=== PATIENT | male | born 1965 | race African-American/Black ===

== ENCOUNTER 2019-07-07 15:47 | Emergency (ER) | payer OTHER ==
--- NOTE | 2019-07-07 16:26 | ED ---
Substance Abuse/Use - HPI Summary HPI Summary: This patient is a 53 year old M presenting to [facility] accompanied by correctional officers with a chief complaint of drug overdose since earlier today. Pt states he went to pick something up from the ground when he thinks he hit his head on the concrete or the seat. He became dizzy and woke up in the hospital. Per correctional officers, pt was smoking K2. He was found down at residential and was revived with narcan. The correctional officers report that the pt deposited suboxone up his rectum. The patient rates the pain 6/10 in severity. Symptoms aggravated by nothing. Symptoms alleviated by nothing. Pt denies any fever, chills, erythema of eyes, sore throat, CP, SOB, cough, abdominal pain, N/V, dysuria, hematuria, myalgia, edema, rash. - History Of Current Complaint Stated Complaint: OVERDOSE PER EMS Time Seen by Provider: 07/07/19 15:48 Hx Obtained From: Patient, Other: - correctional officers Onset/Duration of Drug/ETOH Abuse: Hours - earlier today Ingestion History: Type/Name Of Drug - K2 Severity Initially: Moderate Severity Currently: Moderate Aggravating Factor(s): Nothing Alleviating Factor(s): Nothing Associated Signs And Symptoms: Other: - positive - dizziness negative - fever, chills, erythema of eyes, sore throat, CP, SOB, cough, abdominal pain, N/V, dysuria, hematuria, myalgia, edema, rash. - Allergies/Home Medications Allergies/Adverse Reactions: Allergies Allergy/AdvReac Type Severity Reaction Status Date / Time No Known Allergies Allergy Verified 07/07/19 16:05 Home Medications: Home Medications LoraTADine TAB(NF) [Claritin 10 MG TAB(NF)] 10 mg PO DAILY 07/07/19 [History Confirmed 07/07/19] PMH/Surg Hx/FS Hx/Imm Hx Previously Healthy: No Sensory History: Denies: Hx Cataracts, Hx Legally Blind EENT History: Denies: Hx Deafness, Hx Auditory Problems - Surgical History Surgical History: None Infectious Disease History: No Infectious Disease History: Denies: Traveled Outside the [place] in Last 30 Days - Family History Known Family History: Positive: None - Social History Alcohol Use: None Hx Substance Use: Yes Review of Systems Constitutional: Other - positive - K2 drug overdose Negative: Fever, Chills Negative: Erythema Negative: Sore Throat Negative: Chest Pain Negative: Shortness Of Breath, Cough Negative: Abdominal Pain, Vomiting, Nausea Negative: dysuria, hematuria Negative: Myalgia, Edema Negative: Rash Neurological: Other - positive - dizziness All Other Systems Reviewed And Are Negative: Yes Physical Exam - Summary Physical Exam Summary: Constitutional: Well-developed, Well-nourished, Alert. (-) Distressed Skin: Warm, Dry. 5mm laceration on left lateral eyebrow, 3cm scalpal hematoma on right temporal and parietal lobes HENT: Normocephalic; Atraumatic Eyes: Conjunctiva normal Neck: Musculoskeletal ROM normal neck. (-) JVD, (-) Stridor, (-) Tracheal deviation Cardio: Rhythm regular, rate normal, Heart sounds normal; Intact distal pulses; The pedal pulses are 2+ and symmetric. Radial pulses are 2+ and symmetric. (-) Murmur Pulmonary/Chest wall: Effort normal. (-) Respiratory distress, (-) Wheezes, (-) Rales Abd: Soft, (-) tenderness, (-) Distension, (-) Guarding, (-) Rebound Musculoskeletal: (-) Edema. Tenderness in C5-C6 Lymph: (-) Cervical adenopathy Neuro: Alert, Oriented x3 Psych: Mood and affect Normal Triage Information Reviewed: Yes Vital Signs On Initial Exam: Initial Vitals Temp Pulse Resp BP Pulse Ox 98.0 F 80 16 145/92 97 07/07/19 15:53 07/07/19 15:53 07/07/19 15:53 07/07/19 15:53 07/07/19 15:53 Vital Signs Reviewed: Yes Procedures - Laceration/Wound Repair 2 Location: Other - scalp Description: Linear - 3 mm Suture Type: Other - 6-O Diagnostics - Vital Signs Vital Signs Temp Pulse Resp BP Pulse Ox 07/07/19 15:53 98.0 F 80 16 145/92 97 - Laboratory Result Diagrams: 07/07/19 16:22 07/07/19 16:22 Lab Statement: Any lab studies that have been ordered have been reviewed, and results considered in the medical decision making process. - CT Brain CT Interpretation Completed By: Radiologist Summary of CT Findings: IMPRESSION: No definite intracranial mass or hemorrhage is noted. These findings were reviewed by Dr. Young. 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 No fracture is identified. These findings were reviewed by Dr. Young. - EKG 1655 Cardiac Rate: NL - 80 EKG Rhythm: Sinus Rhythm Summary of EKG Findings: EKG at 1655 shows 80 BPM, sinus rhythm, no STEMI Re-Evaluation - Re-Evaluation First Eval Re-Evaluation Time: 20:05 Comment: Pt states he smoked a "strange" cigarette that he shared with his friends. One friend who smoked it went to the hospital in critical condition. Cigarette is believed to be spice or K2 Course/Dx - Course Course Of Treatment: This patient is a 53 year old M presenting to [facility] accompanied by correctional officers with a chief complaint of drug overdose since earlier today. Pt states he went to pick something up from the ground when he thinks he hit his head on the concrete or the seat. He became dizzy and woke up in the hospital. Per correctional officers, pt was smoking K2. He was found down at residential and was revived with narcan. The correctional officers report that the pt deposited suboxone up his rectum. The patient rates the pain 6/10 in severity. Symptoms aggravated by nothing. Symptoms alleviated by nothing. Pt denies any fever, chills, erythema of eyes, sore throat, CP, SOB, cough, abdominal pain, N/V, dysuria, hematuria, myalgia, edema, rash. Physical exam shows 5mm laceration on left lateral eyebrow, 3cm scalpal hematoma on right temporal and parietal lobes, tenderness in C5-C6. Lab results show MPV 7.2, glucose 111. Brain CT IMPRESSION: No definite intracranial mass or hemorrhage is noted. Cervical Spine CT IMPRESSION: Degenerative disc disease at C4-C5, C5-C6 and C6-C7 with ventral osteophyte formation. No fracture is identified. EKG at 1655 shows 80 BPM, sinus rhythm, no STEMI. Laceration Procedure Note: 2 6-O sutures to 3mm laceration on scalp. I was unable to obtain substantial medical evidence from [facility]. Dx is LOC, scalp abrasion, scalp laceration, and illicit drug use. Pt will be discharged. Pt was told to follow up with his residential director of medical services by tomorrow and to return to the ED for any new or worsening symptoms. - Diagnoses Provider Diagnoses: Scalp abrasion, Scalp laceration, LOC (loss of consciousness), Illicit drug use Discharge ED - Sign-Out/Discharge Documenting (check all that apply): Patient Departure - discharge Patient Received Moderate/Deep Sedation with Procedure: No - Discharge Plan Condition: Stable Disposition: HOME Patient Education Materials: Polysubstance Abuse (ED) Referrals: Aniya HENRIQUEZ,Tera Spence [Primary Care Provider] - Additional Instructions: Follow up with your residential director of medical services by tomorrow. Return to the ED for any new or worsening symptoms. - Attestation Statements Document Initiated by Scribe: Yes Documenting Scribe: Bharat Padilla Provider For Whom Scribe is Documenting (Include Credential): Dr. Mekhi Young MD Scribe Attestation: Bharat Mccollum, scribed for Dr. Mekhi Young MD on 07/07/19 at 2033. Status of Scribe Document: Ready
[2019-07-07 16:39] LABS: ABS Monocytes 0.6 10^3/ul (0-0.8); ABS Neutrophils 5.5 10^3/ul (1.5-7.7); Eosinophil % 0.3 %; Hematocrit 49 % (42-52); Lymphocyte % 13.5 %; Mean Corpuscular HGB Conc 33 g/dL (31-36); Mean Corpuscular Hemoglobin 29 pg (27-31); Mean Corpuscular Volume 89 fL (80-94); Mean Platelet Volume 7.2 fL (7.4-10.4); Platelet Count 196 10^3/uL (150-450); Red Blood Count 5.45 10^6 /uL (4.18-5.48); Red Cell Distribution Width 15 % (10-15); White Blood Count 7.1 10^3/uL (3.5-10.8)
[2019-07-07 16:56] LABS: ALT 22 U/L (7-52); AST 19 U/L (13-39); Albumin 3.9 g/dL (3.2-5.2); Albumin/Globulin Ratio 1.3 (1-3); Alkaline Phosphatase 93 U/L (34-104); Anion Gap 3 mmol/L (2-11); BUN/Creatinine Ratio 12.9 (8-20); Blood Urea Nitrogen 15 mg/dL (6-24); CO2 Carbon Dioxide 26 mmol/L (22-32); Calcium 9.2 mg/dL (8.6-10.3); Chloride 108 mmol/L (101-111); EGFR Non-African American 66.1 (>60); Globulin 2.9 g/dL (2-4); Glucose 111 mg/dL (70-100); Sodium 137 mmol/L (135-145); Total Protein 6.8 g/dL (6.4-8.9)
[2019-07-07 16:57] LABS: Acetaminophen < 15 mcg/mL; Alcohol < 10 mg/dL (<10); Salicylate < 2.50 mg/dL (<30)
[2019-07-07 17:11] LABS: Urine Appearance Clear; Urine Bilirubin Negative (Negative); Urine Blood Negative (Negative); Urine Color Yellow; Urine Glucose Negative (Negative); Urine Ketones Negative (Negative); Urine Nitrite Negative (Negative); Urine Protein Negative (Negative); Urine Specific Gravity 1.018 (1.010-1.030); Urine Urobilinogen Negative (Negative)
[2019-07-07 17:25] LABS: Urine Benzodiazepine Screen None Detected (None Detect); Urine Opiates Screen None Detected (None Detect)
[2019-07-07] MEDS ORDERED: Tetan/Diph/Pertus SYR(Tdap)* 0.5 ML SYR(BOOSTRIX) use SYR IM ONE (20:59)
[2019-07-07 21:12] VITALS: BP 130/75
== END 2019-07-07 21:11 | disposition home or self-care (01) ==
LOC: ED 15:47
DX: S01.01XA Laceration without foreign body of scalp, initial encounter (principal); R55 Syncope and collapse; F15.90 Other stimulant use, unspecified, uncomplicated; Z23 Encounter for immunization; W19.XXXA Unspecified fall, initial encounter; Y92.149 Unspecified place in prison as the place of occurrence of the external cause; Z79.899 Other long term (current) drug therapy; M50.323 Other cervical disc degeneration at C6-C7 level; M25.78 Osteophyte, vertebrae
CPT/HCPCS: 12002; 36415; 70450; 72125; 80053; 80307; 80320; 80329; 81003; 83605; 85025; 90471; 90715; 93005; 99283; G0480